=== PATIENT | male | born 1935 | race Caucasian/White ===

== ENCOUNTER → 2020-01-24 | Outpatient (CLI) | payer OTHER | LOC: SJCVCIMAG 13:52 | PROVIDERS: ATTEND Internal Medicine Cardiovascular Disease | DX: I08.3 Combined rheumatic disorders of mitral, aortic and tricuspid valves (principal); I25.10 Atherosclerotic heart disease of native coronary artery without angina pectoris; I48.21 Permanent atrial fibrillation; E11.9 Type 2 diabetes mellitus without complications; R94.31 Abnormal electrocardiogram [ECG] [EKG]; R00.1 Bradycardia, unspecified; Z95.0 Presence of cardiac pacemaker; Z79.899 Other long term (current) drug therapy; Z90.49 Acquired absence of other specified parts of digestive tract; Z87.891 Personal history of nicotine dependence ==

== ENCOUNTER → 2020-02-05 | Outpatient (CLI) | payer OTHER ==
[~2020-02-05] MED LIST: COZAAR 25 MG TA25 M1 PO; FISH OIL 1,001000 M3 PO; FLOMAX0.4 MG PO; INDERAL LA120 M1 PO; LEXAPRO5 MG PO; METFORMIN HCL500 MG PO; METOPROLOL TART25 MG PO; PRADAXA150 MG PO; SIMVASTATIN80 MG PO
== END ==
LOC: SJCVCIMAG 01-29 09:37
PROVIDERS: ATTEND Internal Medicine Cardiovascular Disease
DX: I44.7 Left bundle-branch block, unspecified (principal); I25.810 Atherosclerosis of coronary artery bypass graft(s) without angina pectoris; I48.91 Unspecified atrial fibrillation; I10 Essential (primary) hypertension; E78.5 Hyperlipidemia, unspecified; E11.9 Type 2 diabetes mellitus without complications; Z87.891 Personal history of nicotine dependence; Z79.899 Other long term (current) drug therapy; Z95.1 Presence of aortocoronary bypass graft

== ENCOUNTER 2020-02-15 10:45 | Inpatient (IN) | payer OTHER ==
[~2020-02-15] VITALS: Ht 172.7 cm; Wt 84.8 kg
[2020-02-15 10:50] VITALS: BP 122/50
[2020-02-15] MEDS ORDERED: LEXAPRO5 MG PO (11:34)
[2020-02-15] MEDS ORDERED: METFORMIN HCL500 MG PO (11:34)
[2020-02-15] MEDS ORDERED: FLOMAX0.4 MG PO (11:35)
[2020-02-15] MEDS ORDERED: INDERAL LA120 M1 PO (11:35)
[2020-02-15] MEDS ORDERED: PRADAXA150 MG PO (11:36)
[2020-02-15] MEDS ORDERED: FISH OIL 1,001000 M3 PO (11:36)
[2020-02-15] MEDS ORDERED: COZAAR 25 MG TA25 M1 PO (11:36)
[2020-02-15] MEDS ORDERED: SIMVASTATIN80 MG PO (11:37)
[2020-02-15 11:51] LABS: ABSOLUTE NEUTROPHILS 3.5 thou/uL (1.4-8.2); BASOPHILS 0.6 % (0.0-2.0); HEMATOCRIT 34.8 % (42.0-52.0); HEMOGLOBIN 11.6 gm/dL (14.0-18.0); LYMPHOCYTES 21.8 % (24.0-44.0); MCH 28.6 pg (26.0-34.0); MCHC 33.2 g/dL (28.0-37.0); MCV 86.1 fL (80.0-100.0); MONOCYTES 9.4 % (1.0-8.0); PLATELET COUNT 229 thou/uL (150-400); POLYS 62.2 % (36.0-66.0); RBC 4.04 mil/uL (4.50-6.00); RDW 15.3 % (10.5-14.5); WBC 5.7 thou/uL (4.0-11.0)
[2020-02-15 12:26] LABS: ANION GAP 8 mmol/L (7-16); BUN 36 mg/dL (7-18); CALCIUM 9.7 mg/dL (8.5-10.1); CHLORIDE 94 mmol/L (98-107); CO2 30 mmol/L (21-32); CREATININE 1.5 mg/dL (0.7-1.3); GLUCOSE 148 mg/dL (74-106); POTASSIUM 4.4 mmol/L (3.5-5.1); SODIUM 132 mmol/L (136-145)
[2020-02-15 12:35] LABS: TROPONIN-I <0.06 ng/mL (<0.06)
[2020-02-15 13:36] LABS: INR 1.5; PROTIME 15.6 Seconds (9.3-11.4)
[2020-02-15 13:42] LABS: CHOLESTEROL 180 mg/dL (<200); HDL CHOLESTEROL 65 mg/dL (>40); LDL CHOLESTEROL 88 mg/dL (<100); TC:HDL 2.8 Ratio (Not establshd); TRIGLYCERIDE 135 mg/dL (<150); VLDL 27 mg/dL (<40)
[2020-02-15 14:14] LABS: TSH 1.846 uIU/mL (0.358-3.740)
[2020-02-15 14:23] VITALS: BP 102/39
--- NOTE | 2020-02-15 14:38 | NUR ---
ATTEMPTED TO CALL REPORT; WAS PLACED ON HOLD
[2020-02-15 14:48] VITALS: BP 125/68
[2020-02-15 17:00] VITALS: BP 103/59
--- NOTE | 2020-02-15 20:36 | NUR ---
ASSUMED CARE OF PATIENT AT 1530 FROM ED. PATIENT ON HEPARIN DRIP. DENIES ANY CHEST PAIN. PATIENT BROUGHT IN W/C AND AMBULATED TO BED WITHOUT ANY DIFFICULTY. ADMISSION COMPLETED. PAPERWORK SIGNED. PATIENT TO CONTINUE WITH POC.
[2020-02-15 20:45] VITALS: BP 109/59
--- NOTE | 2020-02-15 20:56 | NUR ---
ASSUMED CARE OF PATIENT AT 1530. PATIENT DENIES ANY CHEST PAIN ON THE UNIT. HEPARIN DRIP. APTT DRAWN, PENDING RESULTS. NORMAL SALINE IV. COVID SWAB COLLECTED, PENDING RESULTS. CARDIAC CATH SCHEDULED FOR TOMORROW. PATIENT TO CONTINUE WITH POC.
[2020-02-16 03:46] LABS: CREATININE 1.4 mg/dL (0.7-1.3); POTASSIUM 4.3 mmol/L (3.5-5.1)
[2020-02-16 04:45] VITALS: BP 10123/6; BP 123/60
--- NOTE | 2020-02-16 05:17 | NUR ---
SLEPT MOST OF SHIFT. DENIES COMPLAINTS OF CHEST PAIN THIS SHIFT. WORKING ON GOALS AND PLAN OF CARE FOR NOC. PROGRESSING TOWARDS GOALS FOR HEART CATH THIS AM. CONTINUE TO ASSES CLOSELY.
--- NOTE | 2020-02-16 08:37 | EKG ---
[facility] [place] [address] ELECTROCARDIOGRAM REPORT Name: JAZMINE PHAN Room #: 207-P ADM IN M.R.#: [id number] Admission: 02/15/20 Attend Phys: Steph Pederson Discharge: Date of : 37 Report #: [id number] THIS REPORT FOR: cc: Lencho Jones MD, Douglas L. MD Lundgren, Craig H. 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
[2020-02-16 09:45] VITALS: BP 123/60
--- NOTE | 2020-02-16 12:11 | CATHLAB ---
[facility] [place] [address] INVASIVE PROCEDURE REPORT Name: JAZMINE PHAN Room #: 207-P ADM IN M.R.#: [id number] Admission: 02/15/20 Attend Phys: Steph Pederson Discharge: Date of : 37 Report #: [id number] THIS REPORT FOR: cc: Lencho Jones MD, Douglas L. MD Park, Jin S. MD ~ APPROVED REPORT Study performed: 02/16/2020 07:17:36 Patient Details Patient Status: In-Patient Room #: The patient is a 84 year-old male Event Personnel Thad Martinez [employer] Priest, Payton Eisenberg RN RN, Courtney Liang RTR Scrub, Christopher Syed RTR Scrub, Theresa Shin Monitor Procedures Performed Art Access - R femoral artery* Left Heart Cath Coronaries, Bypass Grafts [id number] 32337 Initial Mod Sed Same Phys/QHP Gr5y 962413 92432 Mod Sed Same Phys/QHP Ea 936806 Hemostasis with Manual pressure Indication Dyspnea, Positive stress test Risk Factors HypercholesterolemiaPhysical Activity, Coronary Artery DiseaseHypertension Previous Procedures/Diagnoses Previous CABGPrevious PCI Procedure Narrative The Right Groin^ was infiltrated with 1% Lidocaine subcutaneous anesthesia. A PINNACLE 4FR Sheath #[id number] sheath was inserted into the RFA 4F^. Coronary angiography was performed using coronary diagnostic catheters. The right coronary system was accessed and visualized with a JR4 catheter. The left coronary system was accessed and visualized with a JL5 catheter. Hemostasis was obtained with manual pressure following sheath removal without any complications. GRAFTS: KOKI, SVG TO DIAG & DISTLAL LASHAY. [facility] [address] [place] [address] INVASIVE PROCEDURE REPORT Name: JAZMINE PHAN Room #: 207-P [facility] IN ..#: [id number] Admission: 02/15/20 Attend Phys: Steph Joseph Discharge: Date of : 37 Report #: [id number] Intraoperative Conscious Sedation Sedation start time: 0800 Case end Time: 0900 Fentanyl 100 mcg Versed 2 mg Fluoro Time: 11.41 minutes Dose: DAP 03145.90 cGycm2 3094 mGy Contrast Type and Amount: Visipaque 125 ml Coronary Angiography The patient's coronary anatomy is left dominant. Diagnostic Cath Left Main Left main artery is patent, with no flow-limiting lesions. LAD The LAD is occluded in the proximal segment. There is a patent SANDERSON graft with an end-to-side anastomosis to the mid LAD. Diagonal 1 There is a patent sequential SVG with a aend-ng-bigz anastomosis to the first diagonal artery and an end-to-side anastomosis to the second obtuse marginal artery. There is a mild to moderate stenosis in the midportion of the vein graft. Circumflex The left circumflex artery is a dominant vessel. There is mild disease in the proximal and distal segments. OM1 This is a small caliber vessel, with no flow-limiting lesions. OM2 This is a moderate-sized vessel, with competitive filling from the [place] left circumflex artery and from the SVG. L PDA This vessel is occluded at the ostium. Fills via collateral circulation from the second OM. Right Coronary This is a small, nondominant vessel. Left Ventriculography Left Ventriculography was not performed. Ejection Fraction was 45-50% based off patient's Echocardiogram. An LVEDP was measured and there is no gradient across the outflow tract. Hemodynamics The aortic pressure is 141/62 mmHg with a mean of 97 mmHg. The left ventricular pressure is 140/16 mmHg with a mean of mmHg. The left ventricular end diastolic pressure is 23 mmHg. Conclusion 1. There is a patent SANDERSON graft to the LAD. 2. There is a patent sequential SVG to the first diagonal artery and [facility] [address] [place] [address] INVASIVE PROCEDURE REPORT Name: JAZMINE PHAN Room #: 207-[facility] IN M.R.#: [id number] Admission: 02/15/20 Attend Phys: Steph Joseph Discharge: Date of : 37 Report #: [id number] second obtuse marginal artery. 3. The [place] left circumflex artery is a dominant vessel with no flow-limiting lesions. 4. The left PDA is filled via collateral circulation from the second obtuse marginal artery. 5. Recommend guideline directed medical therapy and aggressive risk factor management. <ELECTRONICALLY SIGNED> By: Thad Martinez MD 02/16/201210 10 10 Thad Martinez MD /INF
--- NOTE | 2020-02-16 16:18 | NUR ---
Sp with patient who admits with angina. Patient reports use not assistive devices at home. Have chair lift in home for steps. Patient reports his is at [facility] rec rehab she does not walk very well. He plans dc in am and denies need for home [facility] care. He has children who can assist.
[2020-02-16 16:30] VITALS: BP 125/77
--- NOTE | 2020-02-16 17:29 | NUR ---
PT HAD HEART CATH TODAY AND IS OFF BEDREST. CARLY BERGER CDI WITH NO HEMATOMA, EXPECT DISCHARGE IN THE AM. PT RPOGRESSING TOWARDS GOALS.
--- NOTE | 2020-02-16 19:05 | NUR ---
BEDSIDE REPORT GIVEN TO MITCHELL SON AND RIGHT GROIN ASSESSED WHICH IS CDI, NIO HEMATOMA.
[2020-02-16 20:00] VITALS: BP 106/63; BP 96/40
[2020-02-17] VITALS: BP 109/74; BP 116/63
[2020-02-17 04:00] VITALS: BP 111/67
[2020-02-17 05:46] VITALS: BP 156/80
[2020-02-17 06:27] LABS: HEMATOCRIT 35.3 % (42.0-52.0); HEMOGLOBIN 11.8 gm/dL (14.0-18.0); MCH 28.8 pg (26.0-34.0); MCHC 33.4 g/dL (28.0-37.0); MCV 86.1 fL (80.0-100.0); RBC 4.1 mil/uL (4.50-6.00); RDW 15.3 % (10.5-14.5); WBC 5.6 thou/uL (4.0-11.0)
[2020-02-17 06:49] LABS: CALCIUM 8.9 mg/dL (8.5-10.1); CREATININE 1.2 mg/dL (0.7-1.3); POTASSIUM 4.4 mmol/L (3.5-5.1)
--- NOTE | 2020-02-17 07:46 | NUR ---
ASSUMED PT CARE AT 1900, PT IS AWAKE, ALERT AND ORIENTED, VPACED ON THE MNONITOR, ASSESSMENTS CHARTED, DENIES CHEST PAIN OR SOB, GROIN SITE CDI, NO HEMATOMA, PT RESTED WELL THROUGH THE NIGHT, PASSED REPORT TO DAY NURSE
[2020-02-17] MEDS ORDERED: METOPROLOL TART25 MG PO (08:03)
[2020-02-17 10:19] VITALS: BP 156/80
--- NOTE | 2020-02-17 10:33 | NUR ---
ASSUMED CARE PT SHIFT CHANGE. ASSESSMENT CHARTED.MEDS GIVEN PER SEP. PT ALERT AND ORIENTED. VSS. DENIES PAIN. O2 SATS WNL ON ROOM AIR. GROIN SITE CDI, NO HEMATOMA. PT SEEN BY CARDIOLOGY DC ORDERS IMPLEMENTED. PAPERWORK DISCUSSED WITH PT. COMMUNICATES UNDERSTANDING. IV REMOVED. TELE REMOVED. PT LEFT UNIT WITH ALL BELONGINGS.
== END 2020-02-17 10:30 | disposition home or self-care (01) | DRG 286 ==
LOC: ER 10:45 → EROBS 13:20 → 2N 13:20
PROVIDERS: Emergency Medicine; Internal Medicine Cardiovascular Disease; Nurse Practitioner; ADMIT Hospitalist; ATTEND Hospitalist
PROC: 4A023N7 Measurement of Cardiac Sampling and Pressure, Left Heart, Percutaneous Approach (ICD-10-PCS; principal; 2020-02-16)
PROC: B218YZZ Fluoroscopy of Left Internal Mammary Bypass Graft using Other Contrast (ICD-10-PCS; principal; 2020-02-16)
PROC: B211YZZ Fluoroscopy of Multiple Coronary Arteries using Other Contrast (ICD-10-PCS; principal; 2020-02-16)
PROC: B213YZZ Fluoroscopy of Multiple Coronary Artery Bypass Grafts using Other Contrast (ICD-10-PCS; principal; 2020-02-16)
DX: I25.118 Atherosclerotic heart disease of native coronary artery with other forms of angina pectoris (principal); N17.0 Acute kidney failure with tubular necrosis; I48.19 Other persistent atrial fibrillation; I12.9 Hypertensive chronic kidney disease with stage 1 through stage 4 chronic kidney disease, or unspecified chronic kidney disease; N18.9 Chronic kidney disease, unspecified; E11.22 Type 2 diabetes mellitus with diabetic chronic kidney disease; I42.9 Cardiomyopathy, unspecified; M62.84 Sarcopenia; F32.9 Major depressive disorder, single episode, unspecified; N40.0 Benign prostatic hyperplasia without lower urinary tract symptoms; C61 Malignant neoplasm of prostate; I35.0 Nonrheumatic aortic (valve) stenosis; E78.5 Hyperlipidemia, unspecified; Z20.828 Contact with and (suspected) exposure to other viral communicable diseases; Z95.1 Presence of aortocoronary bypass graft; Z79.84 Long term (current) use of oral hypoglycemic drugs; Z79.899 Other long term (current) drug therapy; I25.2 Old myocardial infarction; Z87.891 Personal history of nicotine dependence; Z95.0 Presence of cardiac pacemaker
CPT/HCPCS: 10081

== ENCOUNTER → 2020-08-13 | Outpatient (CLI) | payer OTHER | LOC: SJCVC 14:02 | PROVIDERS: ATTEND Internal Medicine Cardiovascular Disease | DX: R94.31 Abnormal electrocardiogram [ECG] [EKG] (principal); R00.0 Tachycardia, unspecified; I44.2 Atrioventricular block, complete; R55 Syncope and collapse; I35.0 Nonrheumatic aortic (valve) stenosis; I48.21 Permanent atrial fibrillation; I10 Essential (primary) hypertension; E78.5 Hyperlipidemia, unspecified; I25.10 Atherosclerotic heart disease of native coronary artery without angina pectoris; E11.9 Type 2 diabetes mellitus without complications; Z95.1 Presence of aortocoronary bypass graft; Z95.0 Presence of cardiac pacemaker; Z88.8 Allergy status to other drugs, medicaments and biological substances; Z79.4 Long term (current) use of insulin; Z87.891 Personal history of nicotine dependence; Z86.73 Personal history of transient ischemic attack (TIA), and cerebral infarction without residual deficits; Z82.49 Family history of ischemic heart disease and other diseases of the circulatory system ==

== ENCOUNTER → 2020-10-30 | Outpatient (CLI) | payer OTHER | LOC: SJCVCIMAG 10-09 07:43 | PROVIDERS: ATTEND Internal Medicine Cardiovascular Disease | DX: I65.23 Occlusion and stenosis of bilateral carotid arteries (principal); E11.51 Type 2 diabetes mellitus with diabetic peripheral angiopathy without gangrene; E78.5 Hyperlipidemia, unspecified; I10 Essential (primary) hypertension; I25.10 Atherosclerotic heart disease of native coronary artery without angina pectoris; M79.605 Pain in left leg; M71.21 Synovial cyst of popliteal space [Baker], right knee; R09.89 Other specified symptoms and signs involving the circulatory and respiratory systems; R55 Syncope and collapse; Z87.891 Personal history of nicotine dependence; Z79.4 Long term (current) use of insulin; Z79.899 Other long term (current) drug therapy; Z95.1 Presence of aortocoronary bypass graft; Z95.0 Presence of cardiac pacemaker; Z86.73 Personal history of transient ischemic attack (TIA), and cerebral infarction without residual deficits ==

== ENCOUNTER → 2021-09-04 | Outpatient (CLI) | payer BC | LOC: SJCVC 13:18 | PROVIDERS: ATTEND Internal Medicine Cardiovascular Disease | DX: I48.21 Permanent atrial fibrillation (principal); I44.2 Atrioventricular block, complete; I35.0 Nonrheumatic aortic (valve) stenosis; I25.10 Atherosclerotic heart disease of native coronary artery without angina pectoris; R00.1 Bradycardia, unspecified; I10 Essential (primary) hypertension; E78.5 Hyperlipidemia, unspecified; I65.29 Occlusion and stenosis of unspecified carotid artery; C79.82 Secondary malignant neoplasm of genital organs; Z95.0 Presence of cardiac pacemaker; Z98.61 Coronary angioplasty status; Z98.890 Other specified postprocedural states; Z88.8 Allergy status to other drugs, medicaments and biological substances; Z79.84 Long term (current) use of oral hypoglycemic drugs; Z79.899 Other long term (current) drug therapy; Z87.891 Personal history of nicotine dependence ==